=== PATIENT | male | born 1985 | race Caucasian/White ===

== ENCOUNTER 2018-12-26 22:02 | Emergency (ER) | payer OTHER ==
--- NOTE | 2018-12-26 23:49 | EDPHYS ---
Physician Documentation [facility] Name: Ac Bowie Age: 33 yrs Sex: Male : 1985 Arrival Date: 12/26/2018 Time: 22:05 Bed 17 Private MD: Jong Kelly C ED Physician Jairo Pollock HPI: 12/26 23:31 This 33 yrs old Male presents to ER via Ambulatory with complaints of Fever. jr8 23:31 The patient reports fever, not measured (subjective). Onset: The symptoms/episode jr8 began/occurred acutely, yesterday. Modifying factors: there are no obvious modifying factors. Associated signs and symptoms: Pertinent positives: cough, sore throat. Severity of symptoms: At their worst the symptoms were mild in the emergency department the symptoms are unchanged. The patient has not experienced similar symptoms in the past. The patient has not recently seen a physician. Historical: - Allergies: 22:43 No Known Allergies; lp1 - Home Meds: 22:43 Doxycycline Oral [Active]; levothyroxine 175 mcg tab 1 tab once daily [Active]; lp1 Prilosec Oral once daily [Active]; - PMHx: 22:43 Hypothyroidism; GERD; down syndrome; lp1 - PSHx: 22:43 Hernia repair; Tonsillectomy; lp1 - Immunization history:: Adult Immunizations up to date. - Social history:: Smoking status: Patient/guardian denies using tobacco. - Ebola Screening: : No symptoms or risks identified at this time. ROS: 23:31 Eyes: Negative for injury, pain, redness, and discharge, Neck: Negative for injury, jr8 pain, and swelling, Cardiovascular: Negative for chest pain, palpitations, and edema, Abdomen/GI: Negative for abdominal pain, nausea, vomiting, diarrhea, and constipation, Back: Negative for injury and pain, MS/Extremity: Negative for injury and deformity, Skin: Negative for injury, rash, and discoloration, Neuro: Negative for headache, weakness, numbness, tingling, and seizure. 23:31 ENT: Positive for rhinorrhea, sinus congestion, sore throat. 23:31 Respiratory: Positive for cough, Negative for dyspnea on exertion, shortness of breath, sputum production, wheezing. Exam: 23:31 Eyes: Pupils equal round and reactive to light, extra-ocular motions intact. Lids and jr8 lashes normal. Conjunctiva and sclera are non-icteric and not injected. Cornea within normal limits. Periorbital areas with no swelling, redness, or edema. ENT: Nares patent. No nasal discharge, no septal abnormalities noted. Tympanic membranes are normal and external auditory canals are clear. Oropharynx with redness. no swelling, or masses, exudates, or evidence of obstruction, uvula midline. Mucous membranes moist. Neck: Trachea midline, no thyromegaly or masses palpated, and no cervical lymphadenopathy. Supple, full range of motion without nuchal rigidity, or vertebral point tenderness. No Meningismus. Cardiovascular: Regular rate and rhythm with a normal S1 and S2. No gallops, murmurs, or rubs. Normal PMI, no JVD. No pulse deficits. Respiratory: Lungs have equal breath sounds bilaterally, clear to auscultation and percussion. No rales, rhonchi or wheezes noted. No increased work of breathing, no retractions or nasal flaring. Abdomen/GI: Soft, non-tender, with normal bowel sounds. No distension or tympany. No guarding or rebound. No evidence of tenderness throughout. Back: No spinal tenderness. No costovertebral tenderness. Full range of motion. Skin: Warm, dry with normal turgor. Normal color with no rashes, no lesions, and no evidence of cellulitis. MS/ Extremity: Pulses equal, no cyanosis. Neurovascular intact. Full, normal range of motion. Neuro: Awake and alert, GCS 15, oriented to person, place, time, and situation. Cranial nerves II-XII grossly intact. Motor strength 5/5 in all extremities. Sensory grossly intact. Cerebellar exam normal. Normal gait. Vital Signs: 22:41 BP 101 / 54; Pulse 75; Resp 18; Temp 99.3(O); Pulse Ox 99% on R/A; Weight 81.65 kg; lp1 Height 5 ft. 5 in. (165.10 cm); Pain 0/10; 22:41 Body Mass Index 29.95 (81.65 kg, 165.10 cm) lp1 MDM: 22:49 Patient medically screened. jr8 23:47 Data reviewed: vital signs, nurses notes, lab test result(s), and as a result, I will [facility] discharge patient. Data interpreted: Pulse oximetry: on room air is 99 %. Interpretation: normal. Counseling: I had a detailed discussion with the patient and/or guardian regarding: the historical points, exam findings, and any diagnostic results supporting the discharge/admit diagnosis, lab results, the need for outpatient follow up, a family practitioner, to return to the emergency department if symptoms worsen or persist or if there are any questions or concerns that arise at home. 12/26 22:40 Order name: Flu; Complete Time: 23:17 lp1 12/26 22:40 Order name: Strep; Complete Time: 23:17 lp1 Administered Medications: 23:46 CANCELLED (Physician Discretion): Augmentin 875 mg PO once jr8 12/27 00:06 Drug: Bicillin L-A 2.4 million units Route: IM; Site: left gluteus; lp1 00:32 Follow up: Response: No adverse reaction lp1 Disposition: 06:53 Co-signature as Attending Physician, Jairo Pollock MD I agree with the assessment and tw4 plan of care. Disposition: 12/26/18 23:48 Discharged to Home. Impression: Streptococcal tonsillitis. - Condition is Stable. - Discharge Instructions: Strep Throat. - Medication Reconciliation Form, Thank You Letter, Antibiotic Education, Prescription Opioid Use form. - Follow up: Jong Kelly MD; When: 1 week; Reason: Recheck today's complaints, Continuance of care, Re-evaluation by your physician. - Problem is new. - Symptoms have improved. Signatures: Dispatcher [employer] EDRI Ayiana Franks RN RN lp1 Shree Alicia PA PA jr8 Jairo Pollock MD MD tw4 Corrections: (The following items were deleted from the chart) 12/26 23:46 23:18 Augmentin 875 mg PO once ordered. jr8 jr8 12/27 00:34 12/26 23:48 12/26/2018 23:48 Discharged to Home. Impression: Streptococcal tonsillitis. lp1 Condition is Stable. Forms are Medication Reconciliation Form, Thank You Letter, Antibiotic Education, Prescription Opioid Use. Follow up: Jong Kelly; When: 1 week; Reason: Recheck today's complaints, Continuance of care, Re-evaluation by your physician. Problem is new. Symptoms have improved. jr8
--- NOTE | 2018-12-26 23:49 | ER ---
Nurse's Notes [facility] Name: Ac Bowie Age: 33 yrs Sex: Male : 1985 Arrival Date: 12/26/2018 Time: 22:05 Bed 17 Private MD: Jogn Kelly C Diagnosis: Streptococcal tonsillitis Presentation: 12/26 22:40 Presenting complaint: Mother states: "He has had low grade fever for a couple days with lp1 congestion"; Mother states productive cough, concerned for pneumonia. Transition of care: patient was not received from another setting of care. Onset of symptoms was December 26, 2018. Risk Assessment: Do you want to hurt yourself or someone else? Patient reports no desire to harm self or others. Initial Sepsis Screen: Does the patient meet any 2 criteria? No. Patient's initial sepsis screen is negative. Does the patient have a suspected source of infection? No. Patient's initial sepsis screen is negative. Care prior to arrival: Medication(s) given: Motrin 20ml at 1900. 22:40 Method Of Arrival: Ambulatory lp1 22:40 Acuity: SHELLEY 4 lp1 Historical: - Allergies: 22:43 No Known Allergies; lp1 - Home Meds: 22:43 Doxycycline Oral [Active]; levothyroxine 175 mcg tab 1 tab once daily [Active]; lp1 Prilosec Oral once daily [Active]; - PMHx: 22:43 Hypothyroidism; GERD; down syndrome; lp1 - PSHx: 22:43 Hernia repair; Tonsillectomy; lp1 - Immunization history:: Adult Immunizations up to date. - Social history:: Smoking status: Patient/guardian denies using tobacco. - Ebola Screening: : No symptoms or risks identified at this time. Screenin:44 Abuse screen: Denies threats or abuse. Denies injuries from another. Nutritional lp1 screening: No deficits noted. Tuberculosis screening: No symptoms or risk factors identified. Fall Risk None identified. Assessment: 22:44 General: Appears in no apparent distress. Behavior is appropriate for age. Pain: lp1 Complains of pain in throat. Neuro: Level of Consciousness is awake, alert, obeys commands, Oriented to person, place, time, situation. Cardiovascular: Patient's skin is warm and dry. Respiratory: Airway is patent Respiratory effort is even, unlabored, Breath sounds are clear bilaterally. Parent/caregiver reports the patient having cough that is productive. GI: No signs and/or symptoms were reported involving the gastrointestinal system. : No signs and/or symptoms were reported regarding the genitourinary system. EENT: Reports nasal congestion pain when swallowing. Derm: Skin is pink, warm \\T\\ dry. Musculoskeletal: Circulation, motion, and sensation intact. 12/27 00:10 Reassessment: Patient for discharge, continuing to monitor after injection. lp1 Vital Signs: 12/26 22:41 BP 101 / 54; Pulse 75; Resp 18; Temp 99.3(O); Pulse Ox 99% on R/A; Weight 81.65 kg; lp1 Height 5 ft. 5 in. (165.10 cm); Pain 0/10; 22:41 Body Mass Index 29.95 (81.65 kg, 165.10 cm) lp1 ED Course: 22:05 Patient arrived in ED. es 22:06 Jong Kelly MD is Private Physician. es 22:20 [facility] jr8 22:20 Jairo Pollock MD is Attending Physician. jr8 22:26 Aiyana Franks, EWA is Primary Nurse. lp1 22:41 Triage completed. lp1 22:42 Arm band placed on left wrist. lp1 22:43 Flu and/or RSV swab sent to lab. Strep swab sent to lab. lp1 22:45 Patient has correct armband on for positive identification. lp1 23:47 Jong Kelly MD is Referral Physician. jr8 03 00:27 No provider procedures requiring assistance completed. Patient did not have IV access lp1 during this emergency room visit. Administered Medications: 12/26 23:46 CANCELLED (Physician Discretion): Augmentin 875 mg PO once jr8 12/27 00:06 Drug: Bicillin L-A 2.4 million units Route: IM; Site: left gluteus; lp1 00:32 Follow up: Response: No adverse reaction lp1 Outcome: 12/26 23:48 Discharge ordered by . jr8 12/27 00:34 Discharged to home ambulatory, with family. lp1 Condition: good Discharge instructions given to sack sorter, Instructed on discharge instructions, follow up and referral plans. Demonstrated understanding of instructions, follow-up care. 00:34 Patient left the ED. lp1 Signatures: Meg Kim Laura, RN RN lp1 Shree Alicia PA PA jr8
[2018-12-27 03:23] VITALS: BP 101/54; TEMP 99.3; O2SAT 99
== END 2018-12-27 00:34 | disposition home or self-care (01) ==
LOC: ER 22:02
DX: J03.00 Acute streptococcal tonsillitis, unspecified (principal); E03.9 Hypothyroidism, unspecified; Q90.9 Down syndrome, unspecified
CPT/HCPCS: 87081; 87804; 96372; 99283

== ENCOUNTER 2019-03-14 14:00 | Emergency (ER) | payer OTHER ==
[2019-03-14] MEDS ORDERED: NA CHLORIDE 0.9% 1,000 ML ONE (15:53)
[2019-03-14 16:00] LABS: Absolute Lymphocytes (CBC) 1.6 K/uL (0.7-4.9); Absolute Monocytes 0.6 K/uL (0.1-1.3); Absolute Neutrophil 4.2 K/uL (1.8-8.0); Basophils % 1.2 % (0-1.3); Eosinophils % 2.4 % (0-4.4); Hematocrit 49.7 % (39.6-49.0); Lymphocytes % 23.9 % (15.3-44.8); MPV 7.2 fL (7.6-11.3); Monocytes % 8.9 % (3.3-12.3); RBC Red Blood Cell Count 5.16 M/uL (4.33-5.43)
[2019-03-14 16:26] LABS: Potassium 4.3 mmol/L (3.5-5.1)
--- NOTE | 2019-03-14 17:26 | EDPHYS ---
Physician Documentation [facility] Name: Ac Bowie Age: 33 yrs Sex: Male : 1985 Arrival Date: 03/14/2019 Time: 14:01 Bed 15 Private MD: Jong Kelly C ED Physician Gaston Russo HPI: 03/14 16:16 This 33 yrs old Male presents to ER via Ambulatory with complaints of jr8 Syncope, Finger Injury. 16:16 The patient has experienced syncope, collapsed. Onset: The symptoms/episode jr8 began/occurred acutely, today. Duration: This was a single episode, that lasted 5 second(s). Context: the episode(s) was witnessed, by family, occurred outdoors, occurred while the patient was walking. Current symptoms: Currently, the patient is not experiencing any symptoms, the patient feels back to baseline, no decreased level of consciousness, no confusion, no dysphasia, no headache, no paralysis, no visual changes. The patient has experienced a previous episode. The patient has not recently seen a physician. Patient and family stated that he accidently slammed finger in door. Stated that he was in pain for a while after. Noticed that he started to look pale and sweaty. Collapsed at that time. Denies him hitting head or neck. Feels better now per family. Has had similar incident in past after a cat scratched him . Historical: - Allergies: 14:13 No Known Allergies; la1 - PMHx: 14:13 GERD; down syndrome; Hypothyroidism; la1 - Immunization history:: Adult Immunizations up to date. - Social history:: Smoking status: Patient/guardian denies using tobacco. - Ebola Screening: : No symptoms or risks identified at this time. ROS: 16:16 Eyes: Negative for injury, pain, redness, and discharge, ENT: Negative for injury, jr8 pain, and discharge, Neck: Negative for injury, pain, and swelling, Cardiovascular: Negative for chest pain, palpitations, and edema, Respiratory: Negative for shortness of breath, cough, wheezing, and pleuritic chest pain, Abdomen/GI: Negative for abdominal pain, nausea, vomiting, diarrhea, and constipation, Back: Negative for injury and pain, Skin: Negative for injury, rash, and discoloration. 16:16 MS/extremity: Positive for ecchymosis, pain, tenderness, of the right hand. 16:16 Neuro: Positive for syncope. Exam: 16:19 Eyes: Pupils equal round and reactive to light, extra-ocular motions intact. Lids and jr8 lashes normal. Conjunctiva and sclera are non-icteric and not injected. Cornea within normal limits. Periorbital areas with no swelling, redness, or edema. ENT: Nares patent. No nasal discharge, no septal abnormalities noted. Tympanic membranes are normal and external auditory canals are clear. Oropharynx with no redness, swelling, or masses, exudates, or evidence of obstruction, uvula midline. Mucous membranes moist. Neck: Trachea midline, no thyromegaly or masses palpated, and no cervical lymphadenopathy. Supple, full range of motion without nuchal rigidity, or vertebral point tenderness. No Meningismus. Cardiovascular: Regular rate and rhythm with a normal S1 and S2. No gallops, murmurs, or rubs. Normal PMI, no JVD. No pulse deficits. Respiratory: Lungs have equal breath sounds bilaterally, clear to auscultation and percussion. No rales, rhonchi or wheezes noted. No increased work of breathing, no retractions or nasal flaring. Abdomen/GI: Soft, non-tender, with normal bowel sounds. No distension or tympany. No guarding or rebound. No evidence of tenderness throughout. Back: No spinal tenderness. No costovertebral tenderness. Full range of motion. Skin: Warm, dry with normal turgor. Normal color with no rashes, no lesions, and no evidence of cellulitis. Neuro: Awake and alert, GCS 15, oriented to person, place, time, and situation. Cranial nerves II-XII grossly intact. Motor strength 5/5 in all extremities. Sensory grossly intact. Cerebellar exam normal. Normal gait. 16:19 Musculoskeletal/extremity: Extremities: grossly normal except: noted in the right hand: ecchymosis, pain, small portion of right index finger bruised at the nail bed. No other deformity or trauma noted. FULL ROM present without pain to affected finger. Rest of extremities unremarkable , ROM: intact in all extremities, Circulation is intact in all extremities. Sensation intact. Vital Signs: 14:13 BP 114 / 57; Pulse 66; Resp 16; Temp 97.6; Pulse Ox 98% on R/A; Weight 76.2 kg; Height la1 5 ft. 4 in. (162.56 cm); 17:25 BP 105 / 73 LA Supine (auto/reg); Pulse 66; sg 17:30 BP 103 / 70 Sitting; Pulse 69; Pulse Ox 99% ; sg 17:34 BP 109 / 78 Standing; Pulse 68; Pulse Ox 98% on R/A; sg 14:13 Body Mass Index 28.84 (76.20 kg, 162.56 cm) la1 MDM: 15:01 Patient medically screened. [facility] 17:25 Data reviewed: vital signs, nurses notes, lab test result(s), EKG, and as a result, I [facility] will discharge patient. Data interpreted: Pulse oximetry: on room air is 98 %. Interpretation: normal. Counseling: I had a detailed discussion with the patient and/or guardian regarding: the historical points, exam findings, and any diagnostic results supporting the discharge/admit diagnosis, lab results, the need for outpatient follow up, a family practitioner, to return to the emergency department if symptoms worsen or persist or if there are any questions or concerns that arise at home. Response to treatment: the patient's symptoms have resolved after treatment. 03/14 15:35 Order name: CBC with Diff; Complete Time: 16:12 [facility] 03/14 15:35 Order name: Basic Metabolic Panel; Complete Time: 17:21 [facility] 03/14 15:35 Order name: IV; Complete Time: 15:56 [facility] 03/14 15:35 Order name: EKG - Nurse/Tech; Complete Time: 15:56 [facility] 03/14 15:35 Order name: EKG; Complete Time: 15:37 [facility] 03/14 17:22 Order name: Orthostatics; Complete Time: 17:38 [facility] Administered Medications: 15:50 Drug: NS 0.9% 1000 ml Route: IV; Rate: 1000 ml; Site: right antecubital; sg 16:42 Follow up: IV Intake: 300ml sg Disposition: 03/14/19 17:26 Discharged to Home. Impression: Syncope and collapse - Neurocardiogenic. - Condition is Stable. - Discharge Instructions: Syncope. - Medication Reconciliation Form, Thank You Letter, Antibiotic Education, Prescription Opioid Use form. - Follow up: Jong Kelly MD; When: 5 - 6 days; Reason: Recheck today's complaints, Continuance of care, Re-evaluation by your physician. - Problem is new. - Symptoms have improved. Addendum: 03/16/2019 08:10 Co-signature as Attending Physician, Gaston uRsso MD I agree with the assessment and k dr plan of care. Signatures: Dispatcher [employer] EDMS Ramu Reyes, RN RN Gaston Russo MD MD [facility] Shree Alicia PA PA jr8 Fbaio Dempsey RN RN la1 Zia, Geri 3 Corrections: (The following items were deleted from the chart) 03/14 17:48 17:26 03/14/2019 17:26 Discharged to Home. Impression: Syncope and collapse - dh3 Neurocardiogenic. Condition is Stable. Forms are Medication Reconciliation Form, Thank You Letter, Antibiotic Education, Prescription Opioid Use. Follow up: A Kelly; When: 5 - 6 days; Reason: Recheck today's complaints, Continuance of care, Re-evaluation by your physician. Problem is new. Symptoms have improved. jr8
--- NOTE | 2019-03-14 17:26 | ER ---
Nurse's Notes [facility] Name: Ac Bowie Age: 33 yrs Sex: Male : 1985 Arrival Date: 03/14/2019 Time: 14:01 Bed 15 Private MD: Jong Kelly C Diagnosis: Syncope and collapse-Neurocardiogenic Presentation: 03/14 14:14 Presenting complaint: He mashed his finger in the door and then his lips were quivering la1 and his eyes seemed to be [place]. He felt like he was trembling and he got pale, then he crumpled to the ground and we helped him up. Transition of care: patient was not received from another setting of care. Onset of symptoms was March 14, 2019. Risk Assessment: Do you want to hurt yourself or someone else? Patient reports no desire to harm self or others. Initial Sepsis Screen: Does the patient meet any 2 criteria? No. Patient's initial sepsis screen is negative. Does the patient have a suspected source of infection? No. Patient's initial sepsis screen is negative. Care prior to arrival: None. 14:14 Method Of Arrival: Ambulatory la1 14:14 Acuity: SHELLEY 3 la1 Historical: - Allergies: 14:13 No Known Allergies; la1 - PMHx: 14:13 GERD; down syndrome; Hypothyroidism; la1 - Immunization history:: Adult Immunizations up to date. - Social history:: Smoking status: Patient/guardian denies using tobacco. - Ebola Screening: : No symptoms or risks identified at this time. Screenin:55 Abuse screen: Denies threats or abuse. Denies injuries from another. Nutritional sg screening: No deficits noted. Tuberculosis screening: No symptoms or risk factors identified. Never had TB. Fall Risk None identified. Assessment: 14:55 General: Appears in no apparent distress. well groomed, well developed, well nourished, sg Behavior is calm, cooperative, appropriate for age. Pain: Denies pain. Neuro: Level of Consciousness is awake, alert, obeys commands, Oriented to person, place, time, situation, Toddler Nanny are equal bilaterally Moves all extremities. Full function Speech is normal. Cardiovascular: Capillary refill is brisk in bilateral fingers Patient's skin is warm and dry. Chest pain is denied. Respiratory: Airway is patent Respiratory effort is even, unlabored, Respiratory pattern is regular, symmetrical. GI: Abdomen is round non-distended, Reports normal bowel habits, tolerance of fluids, tolerance of food. : No signs and/or symptoms were reported regarding the genitourinary system. EENT: No signs and/or symptoms were reported regarding the EENT system. Derm: Skin is pink, warm \T\ dry. Musculoskeletal: No signs and/or symptoms reported regarding the musculoskeletal system. Vital Signs: 14:13 BP 114 / 57; Pulse 66; Resp 16; Temp 97.6; Pulse Ox 98% on R/A; Weight 76.2 kg; Height la1 5 ft. 4 in. (162.56 cm); 17:25 BP 105 / 73 LA Supine (auto/reg); Pulse 66; sg 17:30 BP 103 / 70 Sitting; Pulse 69; Pulse Ox 99% ; sg 17:34 BP 109 / 78 Standing; Pulse 68; Pulse Ox 98% on R/A; sg 14:13 Body Mass Index 28.84 (76.20 kg, 162.56 cm) la1 ED Course: 14:01 Patient arrived in ED. rg4 14:02 Jong Kelly MD is Private Physician. rg4 14:13 Arm band placed on right wrist. la1 14:15 Triage completed. la1 14:48 Ramu Reyes RN is Primary Nurse. sg 14:55 No provider procedures requiring assistance completed. sg 15:01 Shree Alicia PA is PSYCHIATRICP. jr8 15:01 Gaston Russo MD is Attending Physician. jr8 15:20 Initial lab(s) drawn, by vt, sent to lab. Inserted saline lock: 20 gauge in left sg antecubital area, using aseptic technique. Blood collected. 17:25 Jong Kelly MD is Referral Physician. jr8 Administered Medications: 15:50 Drug: NS 0.9% 1000 ml Route: IV; Rate: 1000 ml; Site: right antecubital; sg 16:42 Follow up: IV Intake: 300ml sg Intake: 16:42 IV: 300ml; Total: 300ml. sg Outcome: 17:26 Discharge ordered by . jr8 17:48 Patient left the ED. dh3 Signatures: Ramu Reyes RN RN Shree Alicia PA PA jr8 Fabio Dempsey RN RN la1 Jackie Wan4 Geri Lizarraga 3 Corrections: (The following items were deleted from the chart) 17:34 17:30 BP 103 / 70; Pulse 69bpm; Pulse Ox 99%; sg sg 17:34 17:34 BP 109 / 78; Pulse 68bpm; Pulse Ox 98% RA; sg sg
[2019-03-14 18:57] VITALS: TEMP 97.6
[2019-03-14 19:00] VITALS: BP 109/78; O2SAT 98
--- NOTE | 2019-03-15 07:55 | EKG ---
Test Date: 2019-03-14 Test Time: 15:44:40 Paste Mixing Supervisor: SWG MEASUREMENT RESULTS: Intervals: Rate: 51 OK: 160 QRSD: 92 QT: 422 QTc: 388 Phyllis: P: 13 OK: 160 QRS: 85 T: 28 INTERPRETIVE STATEMENTS: Sinus bradycardia Cannot rule out Anterior infarct, age undetermined Abnormal ECG Compared to ECG 01/07/2008 11:56:10 Myocardial infarct finding now present Sinus rhythm no longer present Electronically Signed On 03-15-19 07:53:44 CDT by Chapito Cai
== END 2019-03-14 17:48 | disposition home or self-care (01) ==
LOC: ER 14:00
DX: R55 Syncope and collapse (principal); K21.9 Gastro-esophageal reflux disease without esophagitis; Q90.9 Down syndrome, unspecified; E03.9 Hypothyroidism, unspecified
CPT/HCPCS: 93005; 85025; 80048; 36415; 99283; J7030

== ENCOUNTER 2023-10-01 00:59 | Emergency (ER) | payer OTHER ==
--- OUTSIDE RECORDS SUMMARY | 2023-10-01 01:03 | XMS REPORT | Continuity of Care Document ---
Author Name Unknown Address [address] [facility] [facility] [address] [place] [address] [facility] thconnect Address 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 Name Role Phone PCP, PATIENT DOES NOT HAVE A Primary Care Physic Vincent Conte Attending Clinician [phone] Unknown, Attending Attending Clinician Kingsley Swann, ATTENDING Attending Clinician UnavailVINCENT Walker Attending Clinician Unavailable Doctor Unassigned, [place] Attending Clinician U navailable NEDRA COTTON Attending Clinician Vladimir dubon 1, [facility] Sleep Lab Bed Attending Clinician Erasto Ljuan MD Attending Clinician + [phone] ERASTO ARROYO Attending Clinician ERASTO Aguirre Attending Clinician Lidia Rich MD Attending Clinician [phone] LIDIA ESPINOZA Attending Clinician Unavailable Cathy Wan RN Attending Clinician Unavailcollette valerio Only, Ang Db Test Attending Clinician UnavailLaverne Navas Attending Clinician [phone] LAVERNE MAZARIEGOS Attending Clinician Unavailable Payers Payer Name Policy Type Policy Number Effective Date Expirati on Date Source Problems Condition Name Condition Details Condition Category Status Onset Date Resolution Date Last Treatment Date Treating Clinician Comments Source No known active problems No known active problems Disease [facility] Allergies, Adverse Reactions, Alerts Allergy Name Allergy Type Status Severity Reaction(s) Onset Date Inactive Date Treating Clinician Comments Source NO KNOWN ALLERGIE S Drug Class Active [facility] Social History Social Habit Start Date Stop Date Quantity Comments Source [facility] of Social function 2023-09-09 00:00:00 2023-09-09 00:00:00 [facility] Exposure to SARS-CoV-2 (event) 2022-09-13 00:00:00 2022-09-23 10:03:00 Not sure [facility] Tobacco use and exposure 2022-09-23 00:00:00 2022-09-23 00:00:00 Smokeless tobacco non-user [facility] Sex Ass[birth year] At 1985 00:00:00 1985 00:00:00 [facility] Smoking Status Start Date Stop Date Source Unknown if [facility] Never smoked tobacco [facility] Medications Ordered Medication Name Filled Medication Name Start Date Stop Date Current Medication? Ordering Clinician Indication Dosage Frequency Signature (SIG) Comments Components Source penicillin g benzathine (BICILLIN L-A) injection 1.2 Million Units 2021-10 17:30: 00 09-23 16:34 :00 No [id number] 1.210 [facility] penicillin g benzathine (BICILLIN L-A) injection 1.2 Million Units 2021-10 17:30: 00 09-23 16:34 :00 No [id number] 1.210 1.2 Million Units, Intramuscu lar, ONCE, 1 dose, On Fri09/23/22 at 1130, TERRI
Re ason for Anti-Infec tive: Documented Infection< br>Documen ray Infection Site: HEENT
D uration of Therapy: Other (see Comments) [facility] penicillin g benzathine (BICILLIN L-A) injection 1.2 Million Units 2021-10 17:30: 00 09-23 16:34 :00 No [id number] 1.210 [facility] penicillin g benzathine (BICILLIN L-A) injection 1.2 Million Units 2021-10 17:30: 00 09-23 16:34 :00 No [id number] 1.210 1.2 Million Units, Intramuscu lar, ONCE, 1 dose, On Fri09/23/22 at 1130, TERRI
Re ason for Anti-Infec tive: Documented Infection< br>Documen ray Infection Site: HEENT
D uration of Therapy: Other (see Comments) [facility] Cholecalcif adina, Vitamin D3, 125 mcg (5,000 unit) capsule 2021-10 10:16: 05 Yes Take by mouth. [facility] levothyroxi ne 125 mcg tablet 2021-10 10:16: 05 Yes 125ug Take 125 mcg by mouth. [facility] Cholecalcif adina, Vitamin D3, 125 mcg (5,000 unit) capsule 2021-10 10:16: 05 Yes Take by mouth. [facility] levothyroxi ne 125 mcg tablet 2021-10 10:16: 05 Yes 125ug Take 125 mcg by mouth. [facility] Cholecalcif adina, Vitamin D3, 125 mcg (5,000 unit) capsule 2021-10 10:16: 05 Yes Take by mouth. [facility] levothyroxi ne 125 mcg tablet 2021-10 10:16: 05 Yes 125ug Take 125 mcg by mouth. [facility] Cholecalcif adina, Vitamin D3, 125 mcg (5,000 unit) capsule 2021-10 10:16: 05 Yes Take by mouth. [facility] levothyroxi ne 125 mcg tablet 2021-10 10:16: 05 Yes 125ug Take 125 mcg by mouth. [facility] Cholecalcif adina, Vitamin D3, 125 mcg (5,000 unit) capsule 2021-10 10:16: 05 Yes Take by mouth. [facility] levothyroxi ne 125 mcg tablet 2021-10 10:16: 05 Yes 125ug Take 125 mcg by mouth. [facility] Cholecalcif adina, Vitamin D3, 125 mcg (5,000 unit) capsule 2021-10 10:16: 05 Yes Take by mouth. [facility] levothyroxi ne 125 mcg tablet 2021-10 10:16: 05 Yes 125ug Take 125 mcg by mouth. [facility] Cholecalcif adina, Vitamin D3, 125 mcg (5,000 unit) capsule 2021-10 10:16: 05 Yes Take by mouth. [facility] levothyroxi ne 125 mcg tablet 2021-10 10:16: 05 Yes 125ug Take 125 mcg by mouth. [facility] Cholecalcif adina, Vitamin D3, 125 mcg (5,000 unit) capsule 2021-10 10:16: 05 Yes Take by mouth. [facility] levothyroxi ne 125 mcg tablet 2021-10 10:16: 05 Yes 125ug Take 125 mcg by mouth. [facility] bromphenira mine-pseudo ephedrine-D M (BROMFED DM) 2-30-10 mg/5 mL syrup 2021-10 00:00: 00 Yes [id number] 10mL Take 10 mL by mouth 4 (four) times daily as needed for Congestion /Allergies . [facility] bromphenira mine-pseudo ephedrine-D M (BROMFED DM) 2-30-10 mg/5 mL syrup 2021-10 00:00: 00 Yes [id number] 10mL Take 10 mL by mouth 4 (four) times daily as needed for Congestion /Allergies . [facility] bromphenira mine-pseudo ephedrine-D M (BROMFED DM) 2-30-10 mg/5 mL syrup 2021-10 00:00: 00 Yes [id number] 10mL Take 10 mL by mouth 4 (four) times daily as needed for Congestion /Allergies . [facility] bromphenira mine-pseudo ephedrine-D M (BROMFED DM) 2-30-10 mg/5 mL syrup 2021-10 00:00: 00 Yes [id number] 10mL Take 10 mL by mouth 4 (four) times daily as needed for Congestion /Allergies . [facility] bromphenira mine-pseudo ephedrine-D M (BROMFED DM) 2-30-10 mg/5 mL syrup 2021-10 2-05 00:00: 00 Yes [id number] 10mL Take 10 mL by mouth 4 (four) times daily as needed for Congestion /Allergies . [facility] bromphenira mine-pseudo ephedrine-D M (BROMFED DM) 2-30-10 mg/5 mL syrup 2021-10 2-05 00:00: 00 Yes [id number] 10mL Take 10 mL by mouth 4 (four) times daily as needed for Congestion /Allergies . [facility] bromphenira mine-pseudo ephedrine-D M (BROMFED DM) 2-30-10 mg/5 mL syrup 2021-10 2-05 00:00: 00 Yes [id number] 10mL Take 10 mL by mouth 4 (four) times daily as needed for Congestion /Allergies . [facility] bromphenira mine-pseudo ephedrine-D M (BROMFED DM) 2-30-10 mg/5 mL syrup 2021-10 2-05 00:00: 00 Yes [id number] 10mL Take 10 mL by mouth 4 (four) times daily as needed for Congestion /Allergies . [facility] doxycycline hyclate 100 mg capsule 2021-10 0-11 00:00: 00 Yes 100mg Take 100 mg by mouth every other day. [facility] doxycycline hyclate 100 mg capsule 2021-10 0-11 00:00: 00 Yes 100mg Take 100 mg by mouth every other day. [facility] doxycycline hyclate 100 mg capsule 2021-10 0-11 00:00: 00 Yes 100mg Take 100 mg by mouth every other day. [facility] doxycycline hyclate 100 mg capsule 2021-10 0-11 00:00: 00 Yes 100mg Take 100 mg by mouth every other day. [facility] doxycycline hyclate 100 mg capsule 2021-10 0-11 00:00: 00 Yes 100mg Take 100 mg by mouth every other day. [facility] doxycycline hyclate 100 mg capsule 2021-10 0-11 00:00: 00 Yes 100mg Take 100 mg by mouth every other day. [facility] doxycycline hyclate 100 mg capsule 2021-10 00:00: 00 Yes 100mg Take 100 mg by mouth every other day. [facility] doxycycline hyclate 100 mg capsule 2021-10 00:00: 00 Yes 100mg Take 100 mg by mouth every other day. [facility] omeprazole 40 mg capsule 2021-10 0 00:00: 00 Yes 40mg Take 40 mg by mouth in the morning. [facility] omeprazole 40 mg capsule 2021-10 0 00:00: 00 Yes 40mg Take 40 mg by mouth in the morning. [facility] omeprazole 40 mg capsule 2021-10 0 00:00: 00 Yes 40mg Take 40 mg by mouth in the morning. [facility] omeprazole 40 mg capsule 2021-10 0 00:00: 00 Yes 40mg Take 40 mg by mouth in the morning. [facility] omeprazole 40 mg capsule 2021-10 0 00:00: 00 Yes 40mg Take 40 mg by mouth in the morning. [facility] omeprazole 40 mg capsule 2021-10 0 00:00: 00 Yes 40mg Take 40 mg by mouth in the morning. [facility] omeprazole 40 mg capsule 2021-10 0 00:00: 00 Yes 40mg Take 40 mg by mouth in the morning. [facility] omeprazole 40 mg capsule 2021-10 0 00:00: 00 Yes 40mg Take 40 mg by mouth in the morning. [facility] Vital Signs Vital Name Observation Time Observation Value Comments Josh sherman Systolic blood pressure 2023-09-10 00:34:00 103 mm[Hg] [facility] Diastolic blood pressure 2023-09-10 00:34:00 70 mm[Hg] [facility] Heart rate 2023-09-10 00:34:00 69 /min [facility] Body temperature 2023-09-10 00:34:00 36.72 Fatemeh [facility] Respiratory rate 2023-09-10 00:34:00 17 /min [facility] Body height 2023-09-10 00:34:00 162.6 cm [facility] Body weight 2023-09-10 00:34:00 87.091 kg [facility] BMI 2023-09-10 00:34:00 32.96 kg/m2 [facility] Oxygen saturation in Arterial blood by Pulse oximetry 2023-09-10 00:34:00 99 /min [facility] Systolic blood pressure 2022-09-23 16:14:00 110 mm[Hg] [facility] Diastolic blood pressure 2022-09-23 16:14:00 73 mm[Hg] [facility] Heart rate 2022-09-23 16:14:00 95 /min [facility] Body temperature 2022-09-23 16:14:00 37.17 Fatemeh [facility] Respiratory rate 2022-09-23 16:14:00 16 /min [facility] Body height 2022-09-23 16:14:00 163 cm [facility] Body weight 2022-09-23 16:14:00 89.449 kg [facility] BMI 2022-09-23 16:14:00 33.67 kg/m2 [facility] Oxygen saturation in Arterial blood by Pulse oximetry 2022-09-23 16:14:00 95 /min [facility] Procedures Procedure Date / Time Performed Performing Clinicia n Source POCT MOLECULAR FLU 2023-09-10 00:47:00 Unknown, Attend ing [facility] POCT MOLECULAR STREP 2023-09-10 00:45:00 Unknown, Atte nding [facility] ASSIGNMENT OF BENEFITS 2023-09-10 00:21:00 Docto r Unassigned, [place] [facility] SLEEP STUDY DATA REPORT 2023-03-06 05:01:00 Doctor Unassigned, [place] [facility] EXTERNAL PROVIDER RECORDS 2022-12-24 06:01:00 Doctor Unassigned, [place] [facility] REFERRAL- REQUEST/RESPONSE 2022-12-18 06:01:00 Doctor Unassigned, [place] [facility] POCT SARS-COV-2 ANTIGEN (BINAX NOW) 2022-09-23 16:28:00 Lidia Espinoza [facility] POCT MOLECULAR STREP 2022-09-23 16:24:00 Unknown, Attling jeronimo [facility] ASSIGNMENT OF BENEFITS 2021-11-03 18:35:47 Docto r Unassigned, [place] [facility] Encounters Start Date/Time End Date/Time Encounter Type Admission Type Attending [facility] Care Facility Care Department Encounter ID Source 2023-09-09 18:20:00 2023-09-09 18:40:00 Urgent Care Vincent Mccall Unknown, Attending [facility] [id number] 350.1.13.10 [id number] [id number] [facility] 2023-09-09 18:20:00 2023-09-09 18:20:00 Outpatient R UNKNOWN, ATTENDING [facility] [id number] [facility] 2023-09-09 18:20:00 2023-09-09 18:20:00 Outpatient R VINCENT MCCALL [facility] [id number] [facility] 2023-09-09 00:00:00 2023-09-09 00:00:00 Orders Only Doctor Unassigned, [place] [facility] 1..840.114 350.1.13.10 4.2.7.2.686 [id number] [facility] 2023-03-06 20:00:00 2023-03-06 22:30:00 Beef Breaker Visit 1, [facility] Sleep Lab Bed Erasto Arroyo [facility] 1..840.114 350.1.13.10 4.2.7.2.686 [id number] [facility] 2023-03-06 20:00:00 2023-03-06 20:00:00 Outpatient R ERASTO ARROYO STRAHIL [facility] [id number] [facility] 2023-03-06 00:00:00 2023-03-06 00:00:00 Orders Only Doctor Unassigned, [place] [facility] [id number] 350.1.13.10 4.2.7.2.686 [id number] [facility] 2022-12-24 00:00:00 2022-12-24 00:00:00 Orders Only Doctor Unassigned, [place] [facility] [id number] 350.1.13.10 4.2.7.2.686 [id number] [facility] 2022-12-18 00:00:00 2022-12-18 00:00:00 Orders Only Doctor Unassigned, [place] [facility] [id number] 350.1.13.10 4.2.7.2.686 [id number] [facility] 2022-09-23 10:00:00 2022-09-23 10:20:00 Urgent Care Lidia Espinoza Unknown, Attending [facility] 1.2840.114 350.1.13.10 4.2.7.2.686 [id number] [facility] 2022-09-23 10:00:00 2022-09-23 10:00:00 Outpatient R LIDIA ESPINOZA [facility] [id number] [facility] 2021-11-04 00:00:00 2021-11-04 00:00:00 Telephone Cathy Wan [facility] 1.2840.114 350.1.13.10 4.2.7.2.686 [id number] [facility] 2021-11-03 12:30:00 2021-11-03 12:45:00 Laboratory Only Only, Ang Db Test Unknown, Attending Laverne Mazariegos [facility] 1.2840.114 350.1.13.10 4.2.7.2.686 [id number] [facility] 2021-11-03 12:30:00 2021-11-03 12:30:00 Outpatient LAVERNE MAURER [facility] [id number] [facility] 2021-11-03 00:00:00 2021-11-03 00:00:00 Orders Only Doctor Unassigned, [place] [facility] [id number] 350.1.13.10 4.2.7.2.686 [id number] [facility] Results Test Description Test Time Test Comments Results Result Co mments Source [facility] MOLECULAR [id number] 00:53:27* Test Item Value Reference Range Interpretation Comme nts POCT Molecular Strep (test c ode = 31907-5) Negative Negative Lab Interpretation (test cod e = 15823-2) Normal [facility] MOLECULAR [id number] 16:28:34* Test Item Value Reference Range Interpretation Comme nts POCT Molecular Strep (test c ode = 38269-6) Positive Negative A Lab Interpretation (test cod e = 92642-7) Abnormal [facility] MOLECULAR [id number] 16:28:34* Test Item Value Reference Range Interpretation Comme nts POCT Molecular Strep (test c ode = 66840-7) Positive Negative A Lab Interpretation (test cod e = 32125-3) Abnormal [facility] SARS-COV-2 ANTIGEN (BINAX NOW)2022-09-23 16:28:00* Test Item Value Reference Range Interpretation Comme nts POCT SARS-COV-2 ANTIGEN (martin t code = 12696-8) Not Detected Not Detected On board controls acceptable with C Line (test code = 3574) Yes [facility] SARS-COV-2 ANTIGEN (BINAX NOW)2022-09-23 16:28:00* Test Item Value Reference Range Interpretation Comme nts POCT SARS-COV-2 ANTIGEN (martin t code = 96405-0) Not Detected Not Detected On board controls acceptable with C Line (test code = 3574) Yes [facility]
[2023-10-01] MEDS ORDERED: METOCLOPRAMIDE 10 MG/2mL INJ ONE (01:34)
[2023-10-01] MEDS ORDERED: GLUCAGON 1 MG/VIAL ONE (01:35)
[2023-10-01] MEDS ORDERED: NA CHLORIDE 0.9% 1,000 ML ONE (01:35)
[2023-10-01 02:06] LABS: RBC Red Blood Cell Count 4.93 M/uL (4.33-5.43)
[2023-10-01 02:12] LABS: Absolute Lymphocytes (CBC) 2.2 K/uL (0.7-4.9); Hematocrit 47.6 % (39.6-49.0); Lymphocytes % 45.5 % (15.3-44.8); MCV 96.4 fL (80-100); MPV 6.9 fL (7.6-11.3); Platelets 264 thou/uL (152-406)
[2023-10-01 02:16] LABS: Albumin 3.6 g/dL (3.4-5.0); Bilirubin Total 0.8 mg/dL (0.2-1.0); Potassium 3.6 mEq/L (3.5-5.1); Protein, Total 7.9 g/dL (6.4-8.2)
--- NOTE | 2023-10-01 03:10 | EDPHYS ---
Physician Documentation [facility] Name[facility] Ac Bowie Age: 38 yrs Sex: Male : 1985 Arrival Date: 10/01/2023 Time: 00:59 Bed 18 Private MD: ED Physician Jean Marie Meade HPI: 10/01 01:06 This 38 yrs old Male presents to ER via Unassigned with complaints of Foreign sp4 Body In Throat. 03:05 8-year-old male presents with sensation of foreign body in the throat after eating some sp4 food stick with stating being this yesterday afternoon. Patient has history of esophageal narrowing or stricture and this problem has happened to him in the past. . Historical: - Allergies: 01:17 No Known Allergies; jb4 - PMHx: 01:17 down syndrome; GERD; Hypothyroidism; Hernia; jb4 - PSHx: 01:17 throat; jb4 - Immunization history:: Adult Immunizations not up to date. - Social history:: Smoking status: Patient denies any tobacco usage or history of. - Family history:: not pertinent. ROS: 03:05 Constitutional: Positive dysphagia and sensation of foreign body sp4 03:05 All other systems are negative, Exam: 03:05 Constitutional: This is a well developed, well nourished patient who is awake, alert, sp4 and in no acute distress. Stigmata of Down syndrome Head/Face: Normocephalic, atraumatic. Eyes: Pupils equal round and reactive to light, extra-ocular motions intact. Lids and lashes normal. Conjunctiva and sclera are not injected. Cornea within normal limits. Periorbital areas with no swelling, redness, or edema. ENT: Nares patent. No nasal discharge, no septal abnormalities noted. Tympanic membranes are normal and external auditory canals are clear. Oropharynx with no redness, swelling, or masses, exudates, or evidence of obstruction, uvula midline. Mucous membranes moist. Neck: Trachea midline, no thyromegaly or masses palpated, and no cervical lymphadenopathy. Supple, full range of motion without nuchal rigidity, or vertebral point tenderness. Chest/axilla: Normal chest wall appearance and motion. Nontender with no deformity. No lesions are appreciated. Cardiovascular: Regular rate and rhythm with a normal S1 and S2. No gallops, murmurs, or rubs. Normal PMI, no JVD. No pulse deficits. Respiratory: Lungs have equal breath sounds bilaterally, clear to auscultation and percussion. No rales, rhonchi or wheezes noted. No increased work of breathing, no retractions or nasal flaring. Abdomen/GI: Soft, non-tender, with normal bowel sounds. No distension or tympany. No guarding or rebound. No evidence of tenderness throughout. Back: No spinal tenderness. No costovertebral tenderness. Skin: Warm, dry with normal turgor. Normal color with no rashes, no lesions, and no evidence of cellulitis. MS/ Extremity: Pulses equal, no cyanosis. Neurovascular intact. Full, normal range of motion. Neuro: Awake and alert, GCS 15, oriented to person, place, time, and situation. Cranial nerves II-XII grossly intact. Motor strength 5/5 in all extremities. Sensory grossly intact. Psych: Awake, alert, with orientation to person, place and time. Behavior, mood, and affect are within normal limits Vital Signs: 01:14 BP 115 / 80; Pulse 70; Resp 16; Temp 97.7(TE); Pulse Ox 97% on R/A; Weight 86.18 kg (R);jb4 01:22 BP 109 / 82; Pulse 58; Pulse Ox 96% on R/A; Pain 0/10; tm6 02:47 BP 98 / 75; Pulse 74; Pulse Ox 98% on R/A; tm6 02:58 Pulse Ox 88% on R/A; tm6 02:59 Pulse Ox 94% on 2 lpm NC; tm6 03:00 BP 115 / 83; Pulse 73; tm6 01:22 Pain Scale: Adult tm6 02:58 patient caregiver reports patient has sleep apnea tm6 MDM: 01:14 Patient medically screened. sp4 03:04 ED course: CT chest - CLINICAL HISTORY: The patient is 38 years old and is Male; sp4 esophageal food bolus obstruction TECHNIQUE: Axial computed tomography images of the chest with intravenous contrast. Sagittal and coronal reformatted images were created and reviewed. This CT exam was performed using one or more of the following dose reduction techniques: automated exposure control, adjustment of the mA and/or kV according to patient size, and/or use of iterative reconstruction technique. COMPARISON: No relevant prior studies available. FINDINGS: Lungs: Unremarkable. No mass. No consolidation. Pleural space: Unremarkable. No pneumothorax. No significant effusion. Heart: Unremarkable. No cardiomegaly. No significant pericardial effusion. No significant coronary artery calcifications. Bones/joints: Unremarkable. No acute fracture. No dislocation. Soft tissues: Unremarkable. Vasculature: Unremarkable. No thoracic aortic aneurysm. Lymph nodes: Unremarkable. No enlarged lymph nodes. IMPRESSION: No acute findings in the chest.. 03:05 ED course: CT neck - COMPARISON: No relevant prior studies available. FINDINGS: sp4 Oropharynx: Unremarkable. No significant tonsillar enlargement. No peritonsillar abscess. Hypopharynx: Unremarkable. Larynx: Lobulated soft tissue density partially effacing the right epiglottic vallecula. Trachea: Unremarkable. Retropharyngeal space: Unremarkable. Submandibular/parotid glands: Unremarkable. Glands are normal in size. Thyroid: Unremarkable. No enlarged or calcified nodules. Bones/joints: Moderate to severe multilevel degenerative changes. No critical canal stenosis. No acute fracture. Soft tissues: Unremarkable. Vasculature: No acute findings. Lymph nodes: Unremarkable. No lymphadenopathy. Sinuses: Mild to moderate right maxillary sinus mucosal thickening. Left maxillary sinus mucus retention cyst/polyp. Lung apices: Unremarkable as visualized. IMPRESSION: Lobulated soft tissue density partially effacing the right epiglottic vallecula. This may be related to a hypertrophic lingual tonsil. Reported potential food bolus is felt less likely although cannot be entirely excluded. Direct visualization may be necessary in order to exclude underlying mass. . 20:04 Differential Diagnosis altered mental status, sepsis, flu. Data reviewed: vital signs, 4 nurses notes, lab test result(s), radiologic studies, CT scan. 10/01 01:12 Order name: CBC with Diff sp4 10/01 01:12 Order name: CMP; Complete Time: 02:28 sp4 10/01 01:12 Order name: Lipase; Complete Time: 02:28 sp4 10/01 01:12 Order name: CK; Complete Time: 02:28 sp4 10/01 02:22 Order name: Manual Differential EDMS 10/01 01:13 Order name: CT Soft Tissue Neck W/contr sp4 10/01 01:14 Order name: CT Chest W/ Con sp4 10/01 01:12 Order name: IV Saline Lock; Complete Time: 01:16 sp4 10/01 01:12 Order name: Labs collected and sent; Complete Time: 01:52 sp4 Administered Medications: 01:25 Drug: metoCLOPramide IVP 10 mg IVP once; over 1 to 2 minutes Route: IVP; Site: right pf1 antecubital; 02:01 Follow up: Response: No adverse reaction; Marked relief of symptoms pf1 01:25 Drug: Glucagon IVP 1 mg IVP once Route: IVP; Site: right antecubital; pf1 02:01 Follow up: Response: No adverse reaction; Marked relief of symptoms pf1 01:25 Drug: NS 0.9% IV 1000 ml IV at 1 bolus Per protocol; 1000 mL bolus Route: IV; Rate: 1 pf1 bolus; Site: right antecubital; 02:02 Follow up: Response: No adverse reaction pf1 03:13 Follow up: IV Status: Completed infusion pf1 Disposition Summary: 10/01/23 03:09 Discharge Ordered Notes: Location: Home sp4 Problem: new sp4 Symptoms: have improved sp4 Condition: Stable sp4 Diagnosis - esophageal food impaction sp4 Followup: sp4 - With: Alex Snyder MD - When: 7 - 10 days - Reason: Recheck today's complaints Discharge Instructions: - Discharge Summary Sheet sp4 - Esophageal Stricture sp4 Forms: - Patient Portal Instructions sp4 Prescriptions: - Reglan 10 mg Oral tablet - take 1 tablet ORAL route every 8 hours PRN nausea; 30 tablet; Refills: 0, sp4 Product Selection Permitted Signatures: Dispatcher [employer] Kenji Sheth RN RN jb4 Gabbie Will RN RN pf1 Jean Marie Meade MD MD sp4
--- NOTE | 2023-10-01 03:10 | ER ---
Nurse's Notes [facility] Name: Ac Bowie Age: 38 yrs Sex: Male : 1985 Arrival Date: 10/01/2023 Time: 00:59 Bed 18 Private MD: Diagnosis: esophageal food impaction Presentation: 10/01 01:14 Chief complaint: Parent and/or Guardian states: He was eating a prepared meal and we jb4 think he has a string turner in his throat. He has seen Dr. Snyder to have his esophagus stretched in the past. Coronavirus screen: At this time, the client does not indicate any symptoms associated with coronavirus-19. Ebola Screen: No symptoms or risks identified at this time. Initial Sepsis Screen: Does the patient meet any 2 criteria? No. Patient's initial sepsis screen is negative. Does the patient have a suspected source of infection? No. Patient's initial sepsis screen is negative. Risk Assessment: Do you want to hurt yourself or someone else? Patient reports no desire to harm self or others. Onset of symptoms was October 01, 2023. Transition of care: patient was not received from another setting of care. 01:14 Method Of Arrival: Ambulatory jb4 01:14 Acuity: SHELLEY 3 jb4 Historical: - Allergies: 01:17 No Known Allergies; jb4 - PMHx: 01:17 down syndrome; GERD; Hypothyroidism; Hernia; jb4 - PSHx: 01:17 throat; jb4 - Immunization history:: Adult Immunizations not up to date. - Social history:: Smoking status: Patient denies any tobacco usage or history of. - Family history:: not pertinent. Screenin:24 [facility] ED Fall Risk Assessment (Adult) History of falling in the last 3 months, tm6 including since admission No falls in past 3 months (0 pts). Abuse screen: Denies threats or abuse. Denies injuries from another. Nutritional screening: No deficits noted. Tuberculosis screening: No symptoms or risk factors identified. Assessment: 01:54 Reassessment: patient vomited large amount. Emesis had bits of food. tm6 01:55 General: Appears uncomfortable, Behavior is calm, cooperative. Pain: Complains of pain tm6 in neck. Neuro: Level of Consciousness is awake, alert, obeys commands, Oriented to person, place, situation, patient has down syndrome, orientation at baseline. Cardiovascular: Capillary refill < 3 seconds Patient's skin is warm and dry. Respiratory: Airway is patent Respiratory effort is even, unlabored, Respiratory pattern is regular, symmetrical. GI: Reports food stuck in throat since dinner. : No signs and/or symptoms were reported regarding the genitourinary system. EENT: Reports difficulty swallowing since dinner time. Derm: No signs and/or symptoms reported regarding the dermatologic system. Musculoskeletal: No signs and/or symptoms reported regarding the musculoskeletal system. 02:47 Reassessment: Patient appears in no apparent distress at this time. Patient and/or tm6 family updated on plan of care and expected duration. Pain level reassessed. Patient is alert, oriented x 3, equal unlabored respirations, skin warm/dry/pink. Vital Signs: 01:14 BP 115 / 80; Pulse 70; Resp 16; Temp 97.7(TE); Pulse Ox 97% on R/A; Weight 86.18 kg (R);jb4 01:22 BP 109 / 82; Pulse 58; Pulse Ox 96% on R/A; Pain 0/10; tm6 02:47 BP 98 / 75; Pulse 74; Pulse Ox 98% on R/A; tm6 02:58 Pulse Ox 88% on R/A; tm6 02:59 Pulse Ox 94% on 2 lpm NC; tm6 03:00 BP 115 / 83; Pulse 73; tm6 01:22 Pain Scale: Adult tm6 02:58 patient caregiver reports patient has sleep apnea tm6 ED Course: 01:04 Patient arrived in ED. gm2 01:06 Jean Marie Meade MD is Attending Physician. sp4 01:15 No provider procedures requiring assistance completed. Inserted saline lock: 22 gauge pf1 in right antecubital area, using aseptic technique. Blood collected. 01:17 Triage completed. jb4 01:17 Arm band placed on right wrist. jb4 01:20 Darleen March RN is Primary Nurse. tm6 01:24 Bed in low position. Call light in reach. Side rails up X2. Adult w/ patient. Provided tm6 Education on: medications given. Client placed on continuous cardiac and pulse oximetry monitoring. NIBP monitoring applied. Door closed. Noise minimized. Warm blanket given. 02:01 CBC with Diff Sent. pf1 02:01 CMP Sent. pf1 02:01 Lipase Sent. pf1 02:55 CT Soft Tissue Neck W/contr In Process Unspecified. EDMS 02:55 CT Chest W/ Con In Process Unspecified. EDMS 03:00 Oxygen administration via nasal cannula \T\ 2L/min. tm6 03:09 Alex Snyder MD is Referral Physician. sp4 03:21 IV discontinued, intact, bleeding controlled, No redness/swelling at site. Pressure tm6 dressing applied. Administered Medications: 01:25 Drug: metoCLOPramide IVP 10 mg IVP once; over 1 to 2 minutes Route: IVP; Site: right pf1 antecubital; 02:01 Follow up: Response: No adverse reaction; Marked relief of symptoms pf1 01:25 Drug: Glucagon IVP 1 mg IVP once Route: IVP; Site: right antecubital; pf1 02:01 Follow up: Response: No adverse reaction; Marked relief of symptoms pf1 01:25 Drug: NS 0.9% IV 1000 ml IV at 1 bolus Per protocol; 1000 mL bolus Route: IV; Rate: 1 pf1 bolus; Site: right antecubital; 02:02 Follow up: Response: No adverse reaction pf1 03:13 Follow up: IV Status: Completed infusion pf1 Medication: 01:55 VIS not applicable for this client. tm6 Outcome: 03:09 Discharge ordered by . sp4 03:20 Discharged to home ambulatory, with family, tm6 03:20 Condition: stable 03:20 Discharge instructions given to patient, family, Instructed on discharge instructions, follow up and referral plans. medication usage, Demonstrated understanding of instructions, follow-up care, medications, Prescriptions given X 1, 03:21 Patient left the ED. tm6 Signatures: Dispatcher [employer] Kenji Sheth RN RN [email or web address] Gabbie Will RN RN pf1 Jean Marie Meade MD MD sp4 Madhuri Billings 2 Darleen March RN RN tm6
[2023-10-01 04:04] VITALS: TEMP 97.7
[2023-10-01 04:13] VITALS: BP 115/83; O2SAT 94
[2023-10-01 04:21] LABS: Blood Morphology Comment NOT SEEN (NOT SEEN); Platelet Estimate ADEQ
--- NOTE | 2023-10-01 13:02 | RAD REPORT ---
EXAM DESCRIPTION: CT - Thorax W/ Con - 10/01/2023 6:43 am CLINICAL HISTORY: The patient is 38 years old and is Male; esophageal food bolus obstruction TECHNIQUE: Axial computed tomography images of the chest with intravenous contrast. Sagittal and c oronal reformatted images were created and reviewed. This CT exam was performed using one or more o f the following dose reduction techniques: automated exposure control, adjustment of the mA and/or kV according to patient size, and/or use of iterative reconstruction technique. COMPARISON: No relevant prior studies available. FINDINGS: Lungs: Unremarkable. No mass. No consolidation. Pleural space: Unremarkable. No pneumothorax. No significant effusion. Heart: Unremarkable. No cardiomegaly. No significant pericardial effusion. No significant c oronary artery calcifications. Bones/joints: Unremarkable. No acute fracture. No dislocation. Soft tissues: Unremarkable. Vasculature: Unremarkable. No thoracic aortic aneurysm. Lymph nodes: Unremarkable. No enlarged lymph nodes. IMPRESSION: No acute findings in the chest. Electronically signed by: Michael Matson MD 10/01/2023 02:59 AM WELFARE AIDE Due to temporary technical issues with the PACS/Fluency reporting system, reports are being signed by the in house radiologist without review as a courtesy to ensure prompt reporting. The interpreting r adiologist is fully responsible for the content of the report.
--- NOTE | 2023-10-01 13:09 | RAD REPORT ---
EXAM DESCRIPTION: CT - Soft Tissue Neck W/Contr - 10/01/2023 6:43 am CLINICAL HISTORY: Food obstruction TECHNIQUE: Axial computed tomography images of the neck with intravenous contrast. Sagittal and co manpreet reformatted images were created and reviewed. This CT exam was performed using one or more of the following dose reduction techniques: automated exposure control, adjustment of the mA and/or k V according to patient size, and/or use of iterative reconstruction technique. COMPARISON: No relevant prior studies available. FINDINGS: Oropharynx: Unremarkable. No significant tonsillar enlargement. No peritonsillar abs cess. Hypopharynx: Unremarkable. Larynx: Lobulated soft tissue density partially effacing the right epiglottic vallecula. Trachea: Unremarkable. Retropharyngeal space: Unremarkable. Submandibular/parotid glands: Unremarkable. Glands are normal in size. Thyroid: Unremarkable. No enlarged or calcified nodules. Bones/joints: Moderate to severe multilevel degenerative changes. No critical canal stenosis. No acute fracture. Soft tissues: Unremarkable. Vasculature: No acute findings. Lymph nodes: Unremarkable. No lymphadenopathy. Sinuses: Mild to moderate right maxillary sinus mucosal thickening. Left maxillary sinus mucus rete ntion cyst/polyp. Lung apices: Unremarkable as visualized. IMPRESSION: Lobulated soft tissue density partially effacing the right epiglottic vallecula. This may be related to a hypertrophic lingual tonsil. Reported potential food bolus is felt less likely al though cannot be entirely excluded. Direct visualization may be necessary in order to exclude underly ing mass. Electronically signed by: Polo Farfan MD 10/01/2023 03:04 AM GARAGE LABORER Due to temporary technical issues with the PACS/Fluency reporting system, reports are being signed by the in house radiologist without review as a courtesy to ensure prompt reporting. The interpreting r adiologist is fully responsible for the content of the report.
== END 2023-10-01 03:21 | disposition home or self-care (01) ==
LOC: ER 00:59
DX: T18.128A Food in esophagus causing other injury, initial encounter (principal); Q90.9 Down syndrome, unspecified
CPT/HCPCS: 85025; 36415; 82550; 83690; 80053; 71260; 70491; Q9967; J1610; J2765; J7030

== ENCOUNTER → 2023-12-07 | Emergency (ER) | payer OTHER ==
[~2023-12-07] MED LIST: KETOROLAC 30 MG/ML INJ ONE
--- OUTSIDE RECORDS SUMMARY | 2023-12-07 13:37 | XMS REPORT | Continuity of Care Document ---
Author Name Unknown Address [address] [facility] [place] [address] [facility] thconnect Address [address] [facility] [place] [address] Care Team Providers Care Wheelchair Van Driver Name Role Phone PCP, PATIENT DOES NOT HAVE A Primary Care Physic Vincent Conte Attending Clinician [phone] Unknown, Attending Attending Clinician Kingsley Swann, ATTENDING Attending Clinician UnavailVINCENT Walker Attending Clinician Unavailable Doctor Unassigned, [place] Attending Clinician U dinoailNEDRA Shine Attending Clinician Unavailcorey dubon 1, [facility] Sleep Lab Bed Attending Clinician Erasto Lujan MD Attending Clinician [phone] ERASTO ARROYO Attending Clinician ERASTO Aguirre Attending Clinician Lidia Rich MD Attending Clinician [phone] LIDIA ESPINOZA Attending Clinician Lis Wan RN, Cathy Sheldon Attending Clinician Unavailcollette valerio Only, Ang Db Test Attending Clinician UnavailLaverne Navas Attending Clinician [phone] LAVERNE MAZARIEGOS Attending Clinician Unavailable Payers Payer Name Policy Type Policy Number Effective Date Expirati on Date Source Problems Condition Name Condition Details Condition Category Status Onset Date Resolution Date Last Treatment Date Treating Clinician Comments Source No known active problems No known active problems Disease Univers [facility] Allergies, Adverse Reactions, Alerts Allergy Name Allergy Type Status Severity Reaction(s) Onset Date Inactive Date Treating Clinician Comments Source NO KNOWN ALLERGIE S Drug Class Active Univers [facility] Social History Social Habit Start Date Stop Date Quantity Comments Source Sexual [facility] History of Social function 2023-09-09 00:00:00 2023-09-09 00:00:00 [facility] Exposure to SARS-CoV-2 (event) 2022-09-13 00:00:00 2022-09-23 10:03:00 Not sure [facility] Tobacco use and exposure 2022-09-23 00:00:00 2022-09-23 00:00:00 Smokeless tobacco non-user [facility] Sex Assigned At 1985 00:00:00 1985 00:00:00 [facility] Smoking Status Start Date Stop Date Source Unknown if ever smoked [facility] Never smoked tobacco [facility] Medications Ordered Medication Name Filled Medication Name Start Date Stop Date Current Medication? Ordering Clinician Indication Dosage Frequency Signature (SIG) Comments Components Source penicillin g benzathine (BICILLIN L-A) injection 1.2 Million Units 2021-10 17:30: 00 09-23 16:34 :00 No [id number] 1.210 [facility] penicillin g benzathine (BICILLIN L-A) injection 1.2 Million Units 2021-10 17:30: 00 09-23 16:34 :00 No [id number] 1.210 1.2 Million Units, Intramuscu lar, ONCE, 1 dose, On Fri09/23/22 at 1130, TERRI
Re ason for Anti-Infec tive: Documented Infection< br>Documen ray Infection Site: HEENT
D uration of Therapy: Other (see Comments) [facility] penicillin g benzathine (BICILLIN L-A) injection 1.2 Million Units 2021-10 17:30: 00 09-23 16:34 :00 No [id number] 1.210 [facility] penicillin g benzathine (BICILLIN L-A) injection 1.2 Million Units 2021-10 17:30: 00 09-23 16:34 :00 No [id number] 1.210 1.2 Million Units, Intramuscu lar, ONCE, 1 dose, On Fri09/23/22 at 1130, TERRI
Re ason for Anti-Infec tive: Documented Infection< br>Documen ray Infection Site: HEENT
D uration of Therapy: Other (see Comments) [facility] Cholecalcif adina, Vitamin D3, 125 mcg (5,000 unit) capsule 2021-10 10:16: 05 Yes Take by mouth. [facility] levothyroxi ne 125 mcg tablet 2021-10 10:16: 05 Yes 125ug Take 125 mcg by mouth. [facility] Cholecalcif adina, Vitamin D3, 125 mcg (5,000 unit) capsule 2021-10 10:16: 05 Yes Take by mouth. [facility] levothyroxi ne 125 mcg tablet 2021-10 10:16: 05 Yes 125ug Take 125 mcg by mouth. [facility] Cholecalcif adina, Vitamin D3, 125 mcg (5,000 unit) capsule 2021-10 10:16: 05 Yes Take by mouth. [facility] levothyroxi ne 125 mcg tablet 2021-10 10:16: 05 Yes 125ug Take 125 mcg by mouth. [facility] Cholecalcif adina, Vitamin D3, 125 mcg (5,000 unit) capsule 2021-10 10:16: 05 Yes Take by mouth. [facility] levothyroxi ne 125 mcg tablet 2021-10 10:16: 05 Yes 125ug Take 125 mcg by mouth. [facility] Cholecalcif adina, Vitamin D3, 125 mcg (5,000 unit) capsule 2021-10 10:16: 05 Yes Take by mouth. [facility] levothyroxi ne 125 mcg tablet 2021-10 10:16: 05 Yes 125ug Take 125 mcg by mouth. [facility] Cholecalcif adina, Vitamin D3, 125 mcg (5,000 unit) capsule 2021-10 10:16: 05 Yes Take by mouth. [facility] levothyroxi ne 125 mcg tablet 2021-10 10:16: 05 Yes 125ug Take 125 mcg by mouth. [facility] Cholecalcif adina, Vitamin D3, 125 mcg (5,000 unit) capsule 2021-10 10:16: 05 Yes Take by mouth. [facility] levothyroxi ne 125 mcg tablet 2021-10 10:16: 05 Yes 125ug Take 125 mcg by mouth. [facility] Cholecalcif adina, Vitamin D3, 125 mcg (5,000 unit) capsule 2021-10 10:16: 05 Yes Take by mouth. [facility] levothyroxi ne 125 mcg tablet 2021-10 10:16: 05 Yes 125ug Take 125 mcg by mouth. [facility] bromphenira mine-pseudo ephedrine-D M (BROMFED DM) 2-30-10 mg/5 mL syrup 2021-10 00:00: 00 Yes [id number] 10mL Take 10 mL by mouth 4 (four) times daily as needed for Congestion /Allergies . [facility] bromphenira mine-pseudo ephedrine-D M (BROMFED DM) 2-30-10 mg/5 mL syrup 2021-10 00:00: 00 Yes [id number] 10mL Take 10 mL by mouth 4 (four) times daily as needed for Congestion /Allergies . [facility] bromphenira mine-pseudo ephedrine-D M (BROMFED DM) 2-30-10 mg/5 mL syrup 2021-10 00:00: 00 Yes [id number] 10mL Take 10 mL by mouth 4 (four) times daily as needed for Congestion /Allergies . [facility] bromphenira mine-pseudo ephedrine-D M (BROMFED DM) 2-30-10 mg/5 mL syrup 2021-10 00:00: 00 Yes [id number] 10mL Take 10 mL by mouth 4 (four) times daily as needed for Congestion /Allergies . [facility] bromphenira mine-pseudo ephedrine-D M (BROMFED DM) 2-30-10 mg/5 mL syrup 2021-10 2-05 00:00: 00 Yes [id number] 10mL Take 10 mL by mouth 4 (four) times daily as needed for Congestion /Allergies . [facility] bromphenira mine-pseudo ephedrine-D M (BROMFED DM) 2-30-10 mg/5 mL syrup 2021-10 2-05 00:00: 00 Yes [id number] 10mL Take 10 mL by mouth 4 (four) times daily as needed for Congestion /Allergies . [facility] bromphenira mine-pseudo ephedrine-D M (BROMFED DM) 2-30-10 mg/5 mL syrup 2021-10 2-05 00:00: 00 Yes [id number] 10mL Take 10 mL by mouth 4 (four) times daily as needed for Congestion /Allergies . [facility] bromphenira mine-pseudo ephedrine-D M (BROMFED DM) 2-30-10 mg/5 mL syrup 2021-10 2-05 00:00: 00 Yes [id number] 10mL Take 10 mL by mouth 4 (four) times daily as needed for Congestion /Allergies . [facility] doxycycline hyclate 100 mg capsule 2021-10 0-11 00:00: 00 Yes 100mg Take 100 mg by mouth every other day. [facility] doxycycline hyclate 100 mg capsule 2021-10 0-11 00:00: 00 Yes 100mg Take 100 mg by mouth every other day. [facility] doxycycline hyclate 100 mg capsule 2021-10 0-11 00:00: 00 Yes 100mg Take 100 mg by mouth every other day. [facility] doxycycline hyclate 100 mg capsule 2021-10 0-11 00:00: 00 Yes 100mg Take 100 mg by mouth every other day. [facility] doxycycline hyclate 100 mg capsule 2021-10 0-11 00:00: 00 Yes 100mg Take 100 mg by mouth every other day. [facility] doxycycline hyclate 100 mg capsule 2021-10 0-11 00:00: 00 Yes 100mg Take 100 mg by mouth every other day. [facility] doxycycline hyclate 100 mg capsule 2021-10 00:00: 00 Yes 100mg Take 100 mg by mouth every other day. [facility] doxycycline hyclate 100 mg capsule 2021-10 00:00: 00 Yes 100mg Take 100 mg by mouth every other day. [facility] omeprazole 40 mg capsule 2021-10 0 00:00: 00 Yes 40mg Take 40 mg by mouth in the morning. [facility] omeprazole 40 mg capsule 2021-10 0 00:00: 00 Yes 40mg Take 40 mg by mouth in the morning. [facility] omeprazole 40 mg capsule 2021-10 0 00:00: 00 Yes 40mg Take 40 mg by mouth in the morning. [facility] omeprazole 40 mg capsule 2021-10 0 00:00: 00 Yes 40mg Take 40 mg by mouth in the morning. [facility] omeprazole 40 mg capsule 2021-10 0 00:00: 00 Yes 40mg Take 40 mg by mouth in the morning. [facility] omeprazole 40 mg capsule 2021-10 0 00:00: 00 Yes 40mg Take 40 mg by mouth in the morning. [facility] omeprazole 40 mg capsule 2021-10 0 00:00: 00 Yes 40mg Take 40 mg by mouth in the morning. [facility] omeprazole 40 mg capsule 2021-10 0 00:00: 00 Yes 40mg Take 40 mg by mouth in the morning. [facility] Vital Signs Vital Name Observation Time Observation Value Comments Josh sherman Systolic blood pressure 2023-09-10 00:34:00 103 mm[Hg] [facility] Diastolic blood pressure 2023-09-10 00:34:00 70 mm[Hg] [facility] Heart rate 2023-09-10 00:34:00 69 /min [facility] Body temperature 2023-09-10 00:34:00 36.72 Fatemeh [facility] Respiratory rate 2023-09-10 00:34:00 17 /min [facility] Body height 2023-09-10 00:34:00 162.6 cm [facility] Body weight 2023-09-10 00:34:00 87.091 kg [facility] BMI 2023-09-10 00:34:00 32.96 kg/m2 [facility] Oxygen saturation in Arterial blood by Pulse oximetry 2023-09-10 00:34:00 99 /min [facility] Systolic blood pressure 2022-09-23 16:14:00 110 mm[Hg] [facility] Diastolic blood pressure 2022-09-23 16:14:00 73 mm[Hg] [facility] Heart rate 2022-09-23 16:14:00 95 /min [facility] Body temperature 2022-09-23 16:14:00 37.17 Fatemeh [facility] Respiratory rate 2022-09-23 16:14:00 16 /min [facility] Body height 2022-09-23 16:14:00 163 cm [facility] Body weight 2022-09-23 16:14:00 89.449 kg [facility] BMI 2022-09-23 16:14:00 33.67 kg/m2 [facility] Oxygen saturation in Arterial blood by Pulse oximetry 2022-09-23 16:14:00 95 /min [facility] Procedures Procedure Date / Time Performed Performing Clinicia n Source POCT MOLECULAR FLU 2023-09-10 00:47:00 Unknown, Attend ing [facility] POCT MOLECULAR STREP 2023-09-10 00:45:00 Unknown, Atte kelliing [facility] ASSIGNMENT OF BENEFITS 2023-09-10 00:21:00 Docto r Unassigned, [place] [facility] SLEEP STUDY DATA REPORT 2023-03-06 05:01:00 Doctor Unassigned, [place] [facility] EXTERNAL PROVIDER RECORDS 2022-12-24 06:01:00 Doctor Unassigned, [place] [facility] REFERRAL- REQUEST/RESPONSE 2022-12-18 06:01:00 Doctor Unassigned, [place] [facility] POCT SARS-COV-2 ANTIGEN (BINAX NOW) 2022-09-23 16:28:00 Lidia Espinoza [facility] POCT MOLECULAR STREP 2022-09-23 16:24:00 Unknown, Attling jeronimo [facility] ASSIGNMENT OF BENEFITS 2021-11-03 18:35:47 Docto r Unassigned, [place] [facility] Encounters Start Date/Time End Date/Time Encounter Type Admission Type Attending [facility] Care Facility Care Department Encounter ID Source 2023-09-09 18:20:00 2023-09-09 18:40:00 Urgent Care Vincent Mccall Unknown, Attending [facility] 1.2.840.114 350.1.13.10 4.2.7.2.686 [id number] [facility] 2023-09-09 18:20:00 2023-09-09 18:20:00 Outpatient R UNKNOWN, ATTENDING [facility] [id number] [facility] 2023-09-09 18:20:00 2023-09-09 18:20:00 Outpatient R VINCENT MCCALL [facility] [id number] [facility] 2023-09-09 00:00:00 2023-09-09 00:00:00 Orders Only Doctor Unassigned, [place] [facility] 1..840.114 350.1.13.10 4.2.7.2.686 [id number] [facility] 2023-03-06 20:00:00 2023-03-06 22:30:00 [place] Visit 1, [facility] Sleep Lab Bed Erasto Arroyo [facility] 1..840.114 350.1.13.10 4.2.7.2.686 [id number] [facility] 2023-03-06 20:00:00 2023-03-06 20:00:00 Outpatient R ERASTO ARROYO STRAHIL [facility] [id number] [facility] 2023-03-06 00:00:2023-03-06 00:00:00 Orders Only Doctor Unassigned, [place] [facility] 1.2.840.114 350.1.13.10 4.2.7.2.686 [id number] [facility] 2022-12-24 00:00:00 2022-12-24 00:00:00 Orders Only Doctor Unassigned, [place] [facility] 1.2.840.114 350.1.13.10 4.2.7.2.686 [id number] [facility] 2022-12-18 00:00:00 2022-12-18 00:00:00 Orders Only Doctor Unassigned, [place] [facility] 1.2.840.114 350.1.13.10 4.2.7.2.686 [id number] [facility] 2022-09-23 10:00:00 2022-09-23 10:20:00 Urgent Care Lidia Espinoza Unknown, Attending [facility] 1.2840.114 350.1.13.10 4.2.7.2.686 [id number] [facility] 2022-09-23 10:00:00 2022-09-23 10:00:00 Outpatient R LIDIA ESPINOZA [facility] [id number] [facility] 2021-11-04 00:00:00 2021-11-04 00:00:00 Telephone Cathy Wan [facility] 1.2840.114 350.1.13.10 4.2.7.2.686 [id number] [facility] 2021-11-03 12:30:00 2021-11-03 12:45:00 Laboratory Only Only, Ang Db Test Unknown, Attending Laverne Mazariegos [facility] 1.2840.114 350.1.13.10 4.2.7.2.686 [id number] [facility] 2021-11-03 12:30:00 2021-11-03 12:30:00 Outpatient LAVERNE MAURER [facility] [id number] [facility] 2021-11-03 00:00:00 2021-11-03 00:00:00 Orders Only Doctor Unassigned, [place] [facility] 1.2.840.114 350.1.13.10 4.2.7.2.686 [id number] [facility] Results Test Description Test Time Test Comments Results Result Co mments Source [facility] MOLECULAR [id number] 00:53:27* Test Item Value Reference Range Interpretation Comme nts POCT Molecular Strep (test c ode = 38583-5) Negative Negative Lab Interpretation (test cod e = 13540-1) Normal [facility] MOLECULAR [id number] 16:28:34* Test Item Value Reference Range Interpretation Comme nts POCT Molecular Strep (test c ode = 77697-2) Positive Negative A Lab Interpretation (test cod e = 56800-1) Abnormal [facility] MOLECULAR [id number] 16:28:34* Test Item Value Reference Range Interpretation Comme nts POCT Molecular Strep (test c ode = 78191-7) Positive Negative A Lab Interpretation (test cod e = 16310-5) Abnormal [facility] SARS-COV-2 ANTIGEN (BINAX NOW)2022-09-23 16:28:00* Test Item Value Reference Range Interpretation Comme nts POCT SARS-COV-2 ANTIGEN (martin t code = 20472-4) Not Detected Not Detected On board controls acceptable with C Line (test code = 3574) Yes [facility] SARS-COV-2 ANTIGEN (BINAX NOW)2022-09-23 16:28:00* Test Item Value Reference Range Interpretation Comme nts POCT SARS-COV-2 ANTIGEN (martin t code = 14402-5) Not Detected Not Detected On board controls acceptable with C Line (test code = 3574) Yes [facility]
[2023-12-07 14:26] LABS: Absolute Lymphocytes (CBC) 1.6 K/uL (0.7-4.9); Hematocrit 47.7 % (39.6-49.0); Lymphocytes % 25.2 % (15.3-44.8); MCV 97.4 fL (80-100); MPV 6.6 fL (7.6-11.3); Platelets 260 thou/uL (152-406)
[2023-12-07 14:36] LABS: Protime INR 1.07
[2023-12-07 14:52] LABS: Albumin 3.6 g/dL (3.4-5.0); Bilirubin Direct 0.2 mg/dL (0-0.2); Bilirubin Indirect, Calculated 0.6 mg/dL (0.2-0.8); Bilirubin Total 0.8 mg/dL (0.2-1.0); Magnesium 2.2 mg/dL (1.6-2.4); Potassium 4.1 mEq/L (3.5-5.1); Protein, Total 7.6 g/dL (6.4-8.2); Troponin High Sensitivity 3.8 pg/mL (<58.9)
[2023-12-07 15:02] LABS: Thyroid Stimulating Hormone 29.3 uIU/mL (0.358-3.740)
--- NOTE | 2023-12-07 16:05 | RAD REPORT ---
EXAM DESCRIPTION: RAD - Knee Right 3 View - 12/07/2023 3:57 pm CLINICAL HISTORY: PAIN COMPARISON: No comparisons FINDINGS/IMPRESSION: No acute fracture. Small fragments along the lateral and the superomedial aspec t of the patella presumably from remote trauma. Mild lateral compartment spurring. Mild patellofemora l compartment spurring. No significant knee effusion.
--- NOTE | 2023-12-07 17:46 | RAD REPORT ---
EXAM DESCRIPTION: US - Extremity Venous Uni Ltd - 12/07/2023 5:39 pm CLINICAL HISTORY: Right lower extremity pain COMPARISON: None. TECHNIQUE: Real-time sonographic evaluation of the right lower extremity deep venous system was perf ormed. FINDINGS: Normal compressibility, flow augmentation, phasic flow and spontaneous flow is identified in the right lower extremity deep venous system. No intraluminal filling defects seen. IMPRESSION: No DVT in the right lower extremity.
--- NOTE | 2023-12-07 17:49 | EDPHYS ---
Physician Documentation [facility] Name: Ac Bowie Age: 38 yrs Sex: Male : 1985 Arrival Date: 12/07/2023 Time: 13:34 Bed 14 Private MD: ED Physician Alonzo Lopez HPI: 12/07 17:52 This 38 yrs old Male presents to ER via Wheelchair with complaints of Knee Pain - Right.kb 17:53 Patient is a 38-year-old male with a history of bursitis in the right hip that causes kb pain every once in a while. Mother states it has been bothering him lately so when they were at the store he raised his leg up to put it onto the cart and developed pain in his right knee. States he had a syncopal episode after the pain started and was helped into a chair. EMS states that patient was awake and alert whenever they got to scene and patient did not want to come in but he could not bear weight so they convinced him to come to get his knee checked out. Mother states patient has had syncopal episodes like this several times in the past due to pain or the site of blood.. Historical: - Allergies: 13:53 No Known Allergies; ko1 - PMHx: 13:53 down syndrome; GERD; Hernia; Hypothyroidism; ko1 - PSHx: 13:53 throat; ko1 - Immunization history:: Adult Immunizations up to date. - Social history:: Smoking status: Patient denies any tobacco usage or history of. ROS: 17:52 Constitutional: Negative for fever, chills, and weight loss, kb 17:52 MS/extremity: Positive for pain, of the right knee, 17:52 Neuro: Positive for syncope, 17:52 All other systems are negative, Exam: 17:34 Constitutional: This is a well developed, well nourished patient who is awake, alert, kb and in no acute distress. Head/Face: Normocephalic, atraumatic. Eyes: Pupils equal round and reactive to light, extra-ocular motions intact. Lids and lashes normal. Conjunctiva and sclera are non-icteric and not injected. Cornea within normal limits. Periorbital areas with no swelling, redness, or edema. ENT: Moist Mucous membranes Cardiovascular: Regular rate Respiratory: Respirations even and unlabored. No increased work of breathing. Talking in full sentences Abdomen/GI: Soft, non-tender. No distention Skin: Warm, dry with normal turgor. Normal color. Neuro: Awake and alert, GCS 15, oriented to person, place, time, and situation. Moves all extremities. Normal gait. 17:34 ECG was reviewed by the Attending Physician. 17:34 Musculoskeletal/extremity: Extremities: grossly normal except: noted in the right knee: pain, tenderness, ROM: intact in all extremities, Circulation is intact in all extremities. Sensation intact. Weight bearing: can bear weight with assistance only, 17:52 Constitutional: This is a well developed, well nourished patient who is awake, alert, kb and in no acute distress. Vital Signs: 13:50 BP 102 / 72; Pulse 63; Resp 18; Temp 97.5; Pulse Ox 100% ; ko1 16:06 BP 115 / 73; Pulse 74; Resp 20; Pulse Ox 100% ; nj1 18:20 BP 115 / 77; Pulse 54; Resp 20; Pulse Ox 100% ; nj1 MDM: 13:39 Patient medically screened. kb 16:16 ED course: Discussed all diagnostic results with mother and patient. Mother requested kb an ultrasound to rule out a DVT for her peace of mind. Mother educated on why did not perform this test initially. Mother requesting that it be done before they are discharged.. 17:52 Differential diagnosis: contusion, fracture, sprain, strain, syncope. Data reviewed: kb vital signs, nurses notes. Historians other than the Patient: Parent: mother. Counseling: I had a detailed discussion with the patient and/or guardian regarding the historical points, exam findings, and any diagnostic results supporting the discharge/admit diagnosis, lab results, radiology results, the need for outpatient follow up, a family practitioner, to return to the emergency department if symptoms worsen or persist or if there are any questions or concerns that arise at home. 12/07 13:51 Order name: Basic Metabolic Panel; Complete Time: 15:18 kb 12/07 13:51 Order name: CBC with Diff; Complete Time: 14:46 kb 12/07 13:51 Order name: Hepatic Function; Complete Time: 15:18 kb 12/07 13:51 Order name: Magnesium; Complete Time: 15:18 kb 12/07 13:51 Order name: Protime (+inr); Complete Time: 14:46 kb 12/07 13:51 Order name: Ptt, Activated; Complete Time: 14:46 kb 12/07 13:51 Order name: Troponin High Sensitivity; Complete Time: 15:18 kb 12/07 13:51 Order name: TSH; Complete Time: 15:18 kb 12/07 15:04 Order name: T4 Free; Complete Time: 15:18 EDMS 12/07 13:51 Order name: Knee Right 3 View XRAY; Complete Time: 16:09 kb 12/07 16:15 Order name: US Extremity Venous Unilateral Ltd; Complete Time: 17:48 kb 12/07 13:51 Order name: EKG; Complete Time: 13:52 kb 12/07 13:51 Order name: Cardiac monitoring; Complete Time: 14:58 kb 12/07 13:51 Order name: EKG - Nurse/Tech; Complete Time: 14:58 kb 12/07 13:51 Order name: IV Saline Lock; Complete Time: 14:18 kb 12/07 13:51 Order name: Labs collected and sent; Complete Time: 14:18 kb 12/07 13:51 Order name: NPO; Complete Time: 14:37 kb 12/07 13:51 Order name: O2 Per Protocol; Complete Time: 14:18 kb 12/07 13:51 Order name: O2 Sat Monitoring; Complete Time: 14:18 kb 12/07 17:49 Order name: Luis Wrap; Complete Time: 18:23 kb EC:34 Rate is 65 beats/min. Rhythm is regular. QRS [place] is Normal. [place] interval is normal at kb 168 msec. QRS interval is normal at 86 msec. QT interval is normal at 397 msec. Administered Medications: 18:20 Drug: Ketorolac IVP 15 mg IVP once Route: IVP; Site: right antecubital; nj1 Disposition: 19:10 Co-signature as Attending Physician, Alonzo Lopez MD I reviewed the patient's care rt provided by the Advanced Practice Provider and agree with the diagnosis and treatment plan. Disposition Summary: 12/07/23 17:49 Discharge Ordered Notes: Location: Home kb Condition: Stable kb Diagnosis - Pain in right knee kb - Syncope kb Followup: kb - With: Emergency Department - When: As needed - Reason: Worsening of condition Followup: kb - With: Private Physician - When: 2 - 3 days - Reason: Recheck today's complaints, Continuance of care, Re-evaluation by your physician Discharge Instructions: - Discharge Summary Sheet kb - Musculoskeletal Pain kb - Syncope, [id number] kb - Knee Sprain, Adult, [id number] kb - Acute Knee Pain, Adult, [id number] kb Forms: - Medication Reconciliation Form kb - Thank You Letter kb - Antibiotic Education kb - Prescription Opioid Use kb - Patient Portal Instructions kb - Leadership Thank You Letter kb Signatures: Dispatcher [employer] EDMS Amy Graves, CERTIFIED LACTATION EDUCATOR-C CERTIFIED LACTATION EDUCATOR-Ckb Clari Evans, RN RN ko1 Alonzo Lopez MD MD rt Kalie Miguel RN RN nj1
--- NOTE | 2023-12-07 17:49 | ER ---
Nurse's Notes [facility] Name: Ac Bowie Age: 38 yrs Sex: Male : 1985 Arrival Date: 12/07/2023 Time: 13:34 Bed 14 Private MD: Diagnosis: Pain in right knee;Syncope Presentation: 12/07 13:50 Chief complaint: EMS states: patient had a syncopal episode at [facility], then was ko1 experiencing right knee pain, unable to bear weight. Did not fall or experience any injuries. Coronavirus screen: At this time, the client does not indicate any symptoms associated with coronavirus-19. Ebola Screen: No symptoms or risks identified at this time. Initial Sepsis Screen: Does the patient meet any 2 criteria? No. Patient's initial sepsis screen is negative. Does the patient have a suspected source of infection? No. Patient's initial sepsis screen is negative. Risk Assessment: Do you want to hurt yourself or someone else? Patient reports no desire to harm self or others. Onset of symptoms was December 07, 2023. 13:50 Method Of Arrival: Wheelchair ko1 13:50 Acuity: SHELLEY 3 ko1 Triage Assessment: 13:53 General: Appears in no apparent distress. Behavior is calm, cooperative, appropriate ko1 for age. Pain: Complains of pain in right knee. Historical: - Allergies: 13:53 No Known Allergies; ko1 - PMHx: 13:53 down syndrome; GERD; Hernia; Hypothyroidism; ko1 - PSHx: 13:53 throat; ko1 - Immunization history:: Adult Immunizations up to date. - Social history:: Smoking status: Patient denies any tobacco usage or history of. Screenin:40 [facility] ED Fall Risk Assessment (Adult) Score/Fall Risk Level 0 - 2 = Low Risk nj1 Oriented to surroundings, Maintained a safe environment, Hourly rounding (assess needs \T\ fall precautionary measures) done. Abuse screen: Denies threats or abuse. Denies injuries from another. Nutritional screening: No deficits noted. Tuberculosis screening: No symptoms or risk factors identified. Assessment: 14:38 General: Appears in no apparent distress. comfortable, Behavior is calm, cooperative, nj1 appropriate for age. Pain: Complains of pain in right knee Unable to use pain scale. Does not appear to understand pain scale. Neuro: No deficits noted. Cardiovascular: Patient's skin is warm and dry. Respiratory: Airway is patent Respiratory effort is even, unlabored. Musculoskeletal: Reports pain in right knee. 16:06 Reassessment: Patient appears in no apparent distress at this time. Patient and/or nj1 family updated on plan of care and expected duration. Pain level reassessed. 18:20 Reassessment: Patient appears in no apparent distress at this time. Patient and/or nj1 family updated on plan of care and expected duration. Pain level reassessed. Vital Signs: 13:50 BP 102 / 72; Pulse 63; Resp 18; Temp 97.5; Pulse Ox 100% ; ko1 16:06 BP 115 / 73; Pulse 74; Resp 20; Pulse Ox 100% ; nj1 18:20 BP 115 / 77; Pulse 54; Resp 20; Pulse Ox 100% ; nj1 ED Course: 13:38 Patient arrived in ED. im 13:38 Amy Graves FNP-C is [facility]. kb 13:38 Alonzo Lopez MD is Attending Physician. kb 13:53 Triage completed. ko1 13:53 Arm band placed on right wrist. Patient placed in waiting room, Patient notified of ko1 wait time. 14:18 Inserted saline lock: 20 gauge in right antecubital area, using aseptic technique. hb Blood collected. 14:18 Basic Metabolic Panel Sent. hb 14:18 TSH Sent. hb 14:18 CBC with Diff Sent. hb 14:18 Hepatic Function Sent. hb 14:18 Magnesium Sent. hb 14:18 Protime (+inr) Sent. hb 14:18 Ptt, Activated Sent. hb 14:18 Troponin High Sensitivity Sent. hb 14:37 Kalie Miguel, RN is Primary Nurse. nj1 14:40 Patient has correct armband on for positive identification. Bed in low position. Call nj1 light in reach. Adult w/ patient. Provided Education on: call light, fall precautions. 15:59 Knee Right 3 View XRAY In Process Unspecified. EDMS 17:40 US Extremity Venous Unilateral Ltd In Process Unspecified. EDMS 18:20 Luis wrap to right knee. nj1 18:20 No provider procedures requiring assistance completed. nj1 18:30 IV discontinued, intact, bleeding controlled. nj1 Administered Medications: 18:20 Drug: Ketorolac IVP 15 mg IVP once Route: IVP; Site: right antecubital; nj1 Medication: 14:40 VIS not applicable for this client. nj1 Outcome: 17:49 Discharge ordered by . kb 18:37 Discharged to home ambulatory, with family, nj1 18:37 Condition: stable 18:37 Discharge instructions given to family, medical assisting instructor, Instructed on discharge instructions, follow up and referral plans. safety practices, Luis wrap Demonstrated understanding of instructions, follow-up care, Luis wrap 18:41 Patient left the ED. nj1 Signatures: Dispatcher [employer] EDMS Amy Graves, ARM MAKER-C ARM MAKER-Ckb Anny Fox RN RN Clari Evans RN RN ko1 Kalie Miguel RN RN nj1 Brenda Vega
[2023-12-07 18:47] VITALS: O2SAT 100
[2023-12-07 19:07] VITALS: BP 115/77; TEMP 97.5
--- NOTE | 2023-12-08 10:56 | EKG ---
Test Date: 2023-12-07 Test Time: 14:52:36 [employer]: [employer] MEASUREMENT RESULTS: Intervals: Rate: 65 MI: 168 QRSD: 86 QT: 382 QTc: 397 [place]: P: 35 MI: 168 QRS: 83 T: 34 INTERPRETIVE STATEMENTS: Normal sinus rhythm Possible Anterior infarct, age undetermined Abnormal ECG Compared to ECG 11/18/2023 14:39:39 Sinus bradycardia no longer present Sinus arrhythmia no longer present Right-axis deviation no longer present Myocardial infarct finding still present Electronically Signed On 12-08-23 10:55:06 DISCHARGE SPECIALIST by Eris Cisneros
== END ==
LOC: ER 13:34
DX: M25.561 Pain in right knee (principal); R55 Syncope and collapse; Q90.9 Down syndrome, unspecified
CPT/HCPCS: 36415; 80048; 80076; 83735; 84439; 84443; 84484; 85025; 85610; 85730; 93005; 93971